=== PATIENT | male | born 1930 | race Two or more races ===

== ENCOUNTER → 2018-04-18 | Outpatient (CLI) | payer OTHER, MEDICAID ==
[~2018-04-18] MED LIST: ASPI81CH43; ASPI81CH43 PO; CARV20CA OR; CARV25TA55; METH500T6; METH500T6 PO
[2018-04-18 11:03] VITALS: BP_SYST 106; BP_SYST 113; BP_DIAS 52; BP_DIAS 59
[2018-04-18 12:03] VITALS: BP 106/52
== END | disposition home or self-care (01) ==
LOC: CHF HDHVI 09:46
PROVIDERS: ATTEND Internal Medicine
DX: I25.10 Atherosclerotic heart disease of native coronary artery without angina pectoris (principal); R94.31 Abnormal electrocardiogram [ECG] [EKG]
CPT/HCPCS: 93005; G0463

== ENCOUNTER → 2018-04-19 | Outpatient (CLI) | payer OTHER, MEDICAID ==
[2018-04-19 10:28] VITALS: BP_SYST 105; BP_SYST 111; BP_DIAS 58; BP_DIAS 76
== END | disposition home or self-care (01) ==
LOC: CHF HDHVI 09:56
PROVIDERS: ATTEND Internal Medicine
DX: I25.118 Atherosclerotic heart disease of native coronary artery with other forms of angina pectoris (principal); I25.5 Ischemic cardiomyopathy; I11.0 Hypertensive heart disease with heart failure; I50.23 Acute on chronic systolic (congestive) heart failure; Z98.61 Coronary angioplasty status
CPT/HCPCS: G0166

== ENCOUNTER → 2018-04-20 | Outpatient (CLI) | payer OTHER, MEDICAID ==
[2018-04-20 10:29] VITALS: BP_SYST 109; BP_SYST 113; BP_DIAS 54; BP_DIAS 59
== END | disposition home or self-care (01) ==
LOC: CHF HDHVI 09:58
PROVIDERS: ATTEND Internal Medicine Cardiovascular Disease
DX: I25.118 Atherosclerotic heart disease of native coronary artery with other forms of angina pectoris (principal); I25.5 Ischemic cardiomyopathy; I11.0 Hypertensive heart disease with heart failure; I50.23 Acute on chronic systolic (congestive) heart failure; E11.9 Type 2 diabetes mellitus without complications; Z98.61 Coronary angioplasty status
CPT/HCPCS: G0166

== ENCOUNTER → 2018-04-21 | Outpatient (CLI) | payer OTHER, MEDICAID ==
[2018-04-21 10:13] VITALS: BP_SYST 109; BP_SYST 113; BP_DIAS 50; BP_DIAS 57
== END | disposition home or self-care (01) ==
LOC: CHF HDHVI 09:58
PROVIDERS: ATTEND Internal Medicine Cardiovascular Disease
DX: I25.118 Atherosclerotic heart disease of native coronary artery with other forms of angina pectoris (principal); I25.5 Ischemic cardiomyopathy; E11.9 Type 2 diabetes mellitus without complications; I50.23 Acute on chronic systolic (congestive) heart failure; Z98.61 Coronary angioplasty status
CPT/HCPCS: G0166

== ENCOUNTER → 2018-04-22 | Outpatient (CLI) | payer OTHER, MEDICAID ==
[2018-04-22 10:12] VITALS: BP_SYST 116; BP_SYST 117; BP_DIAS 49; BP_DIAS 51
== END | disposition home or self-care (01) ==
LOC: CHF HDHVI 10:01
PROVIDERS: ATTEND Internal Medicine Cardiovascular Disease
DX: I25.118 Atherosclerotic heart disease of native coronary artery with other forms of angina pectoris (principal)
CPT/HCPCS: G0166

== ENCOUNTER → 2018-04-25 | Outpatient (CLI) | payer OTHER, MEDICAID ==
[2018-04-25 10:20] VITALS: BP_SYST 113; BP_DIAS 53; BP_DIAS 78
== END | disposition home or self-care (01) ==
LOC: CHF HDHVI 09:31
PROVIDERS: ATTEND Internal Medicine Cardiovascular Disease
DX: I25.118 Atherosclerotic heart disease of native coronary artery with other forms of angina pectoris (principal); I25.5 Ischemic cardiomyopathy; I50.23 Acute on chronic systolic (congestive) heart failure; E11.9 Type 2 diabetes mellitus without complications; Z98.61 Coronary angioplasty status
CPT/HCPCS: G0166

== ENCOUNTER → 2018-04-26 | Outpatient (CLI) | payer OTHER, MEDICAID ==
[2018-04-26 10:21] VITALS: BP_SYST 113; BP_SYST 116; BP_DIAS 59; BP_DIAS 61
== END | disposition home or self-care (01) ==
LOC: CHF HDHVI 09:47
PROVIDERS: ATTEND Internal Medicine Cardiovascular Disease
DX: I25.118 Atherosclerotic heart disease of native coronary artery with other forms of angina pectoris (principal); I25.5 Ischemic cardiomyopathy; I50.23 Acute on chronic systolic (congestive) heart failure; E11.9 Type 2 diabetes mellitus without complications; Z98.61 Coronary angioplasty status
CPT/HCPCS: G0166

== ENCOUNTER → 2018-04-27 | Outpatient (CLI) | payer OTHER, MEDICAID ==
[2018-04-27 10:23] VITALS: BP_SYST 113; BP_SYST 114; BP_DIAS 56; BP_DIAS 60
== END | disposition home or self-care (01) ==
LOC: CHF HDHVI 10:10
PROVIDERS: ATTEND Internal Medicine Cardiovascular Disease
DX: I25.118 Atherosclerotic heart disease of native coronary artery with other forms of angina pectoris (principal); I25.5 Ischemic cardiomyopathy; I50.23 Acute on chronic systolic (congestive) heart failure; E11.9 Type 2 diabetes mellitus without complications; Z98.61 Coronary angioplasty status
CPT/HCPCS: G0166

== ENCOUNTER → 2018-04-28 | Outpatient (CLI) | payer OTHER, MEDICAID ==
[2018-04-28 10:23] VITALS: BP_SYST 128; BP_DIAS 64; BP_DIAS 68
== END | disposition home or self-care (01) ==
LOC: CHF HDHVI 09:50
PROVIDERS: ATTEND Internal Medicine Cardiovascular Disease
DX: I25.118 Atherosclerotic heart disease of native coronary artery with other forms of angina pectoris (principal); I50.23 Acute on chronic systolic (congestive) heart failure; I25.5 Ischemic cardiomyopathy; E11.9 Type 2 diabetes mellitus without complications; Z98.61 Coronary angioplasty status
CPT/HCPCS: G0166

== ENCOUNTER → 2018-04-29 | Outpatient (CLI) | payer OTHER, MEDICAID ==
[2018-04-29 10:26] VITALS: BP_SYST 123; BP_SYST 125; BP_DIAS 61; BP_DIAS 63
== END | disposition home or self-care (01) ==
LOC: CHF HDHVI 09:52
PROVIDERS: ATTEND Internal Medicine Cardiovascular Disease
DX: I25.118 Atherosclerotic heart disease of native coronary artery with other forms of angina pectoris (principal); I11.0 Hypertensive heart disease with heart failure; I50.23 Acute on chronic systolic (congestive) heart failure; I25.5 Ischemic cardiomyopathy; E11.9 Type 2 diabetes mellitus without complications; Z98.61 Coronary angioplasty status
CPT/HCPCS: G0166

== ENCOUNTER → 2018-05-02 | Outpatient (CLI) | payer OTHER, MEDICAID ==
[2018-05-02 10:24] VITALS: BP_SYST 110; BP_SYST 125; BP_DIAS 55; BP_DIAS 57
== END | disposition home or self-care (01) ==
LOC: Rad HDHVI 10:19
PROVIDERS: ATTEND Internal Medicine
DX: I25.118 Atherosclerotic heart disease of native coronary artery with other forms of angina pectoris (principal); I25.5 Ischemic cardiomyopathy; I11.0 Hypertensive heart disease with heart failure; I50.23 Acute on chronic systolic (congestive) heart failure; E11.9 Type 2 diabetes mellitus without complications; Z98.61 Coronary angioplasty status
CPT/HCPCS: G0166

== ENCOUNTER → 2018-05-03 | Outpatient (CLI) | payer OTHER, MEDICAID ==
[2018-05-03 10:15] VITALS: BP_SYST 116; BP_SYST 119; BP_DIAS 61
== END | disposition home or self-care (01) ==
LOC: CHF HDHVI 10:07
PROVIDERS: ATTEND Internal Medicine Cardiovascular Disease
DX: I25.118 Atherosclerotic heart disease of native coronary artery with other forms of angina pectoris (principal); I25.5 Ischemic cardiomyopathy; E11.9 Type 2 diabetes mellitus without complications; I50.23 Acute on chronic systolic (congestive) heart failure; Z98.61 Coronary angioplasty status
CPT/HCPCS: G0166

== ENCOUNTER → 2018-05-05 | Outpatient (CLI) | payer OTHER, MEDICAID ==
[2018-05-05 10:13] VITALS: BP_SYST 114; BP_SYST 117; BP_DIAS 54; BP_DIAS 57
== END | disposition home or self-care (01) ==
LOC: CHF HDHVI 10:06
PROVIDERS: ATTEND Internal Medicine Cardiovascular Disease
DX: I25.118 Atherosclerotic heart disease of native coronary artery with other forms of angina pectoris (principal); I25.5 Ischemic cardiomyopathy; I50.23 Acute on chronic systolic (congestive) heart failure; E11.9 Type 2 diabetes mellitus without complications; Z98.61 Coronary angioplasty status
CPT/HCPCS: G0166

== ENCOUNTER → 2018-05-06 | Outpatient (CLI) | payer OTHER, MEDICAID ==
[2018-05-06 10:03] VITALS: BP_SYST 112; BP_SYST 132; BP_DIAS 57
== END | disposition home or self-care (01) ==
LOC: Rad HDHVI 09:48
PROVIDERS: ATTEND Internal Medicine Cardiovascular Disease
DX: I25.118 Atherosclerotic heart disease of native coronary artery with other forms of angina pectoris (principal); I25.5 Ischemic cardiomyopathy; I11.0 Hypertensive heart disease with heart failure; I50.23 Acute on chronic systolic (congestive) heart failure; E11.9 Type 2 diabetes mellitus without complications; Z98.61 Coronary angioplasty status
CPT/HCPCS: G0166

== ENCOUNTER → 2018-05-09 | Outpatient (CLI) | payer OTHER, MEDICAID ==
[2018-05-09 10:21] VITALS: BP_SYST 112; BP_SYST 119; BP_DIAS 55; BP_DIAS 56
== END | disposition home or self-care (01) ==
LOC: CHF HDHVI 10:14
PROVIDERS: ATTEND Internal Medicine Cardiovascular Disease
DX: I25.118 Atherosclerotic heart disease of native coronary artery with other forms of angina pectoris (principal); I25.5 Ischemic cardiomyopathy; I50.23 Acute on chronic systolic (congestive) heart failure; E11.9 Type 2 diabetes mellitus without complications; Z98.61 Coronary angioplasty status
CPT/HCPCS: G0166

== ENCOUNTER → 2018-05-10 | Outpatient (CLI) | payer OTHER, MEDICAID ==
[2018-05-10 10:13] VITALS: BP_SYST 116; BP_DIAS 49; BP_DIAS 55
== END | disposition home or self-care (01) ==
LOC: CHF HDHVI 09:53
PROVIDERS: ATTEND Internal Medicine Cardiovascular Disease
DX: I25.118 Atherosclerotic heart disease of native coronary artery with other forms of angina pectoris (principal); I25.5 Ischemic cardiomyopathy; I11.0 Hypertensive heart disease with heart failure; I50.23 Acute on chronic systolic (congestive) heart failure; E11.9 Type 2 diabetes mellitus without complications; Z98.61 Coronary angioplasty status
CPT/HCPCS: G0166

== ENCOUNTER → 2018-05-20 | Outpatient (CLI) | payer OTHER, MEDICAID ==
[2018-05-20 10:11] VITALS: BP_SYST 114; BP_SYST 116; BP_DIAS 62; BP_DIAS 68
== END | disposition home or self-care (01) ==
LOC: CHF HDHVI 10:13
PROVIDERS: ATTEND Internal Medicine Cardiovascular Disease
DX: I25.118 Atherosclerotic heart disease of native coronary artery with other forms of angina pectoris (principal); I25.5 Ischemic cardiomyopathy; I11.0 Hypertensive heart disease with heart failure; I50.23 Acute on chronic systolic (congestive) heart failure; E11.9 Type 2 diabetes mellitus without complications; Z98.61 Coronary angioplasty status
CPT/HCPCS: G0166

== ENCOUNTER → 2018-06-06 | Outpatient (CLI) | payer OTHER, MEDICAID ==
[2018-06-06 11:10] VITALS: BP_SYST 118; BP_SYST 120; BP_DIAS 58; BP_DIAS 60
== END | disposition home or self-care (01) ==
LOC: CHF HDHVI 09:41
PROVIDERS: ATTEND Internal Medicine Cardiovascular Disease
DX: I25.118 Atherosclerotic heart disease of native coronary artery with other forms of angina pectoris (principal); I25.5 Ischemic cardiomyopathy; I11.0 Hypertensive heart disease with heart failure; I50.23 Acute on chronic systolic (congestive) heart failure; E11.9 Type 2 diabetes mellitus without complications; Z98.61 Coronary angioplasty status
CPT/HCPCS: G0166

== ENCOUNTER → 2018-06-07 | Outpatient (CLI) | payer OTHER, MEDICAID ==
[2018-06-07 10:14] VITALS: BP_SYST 116; BP_SYST 122; BP_DIAS 59
== END | disposition home or self-care (01) ==
LOC: CHF HDHVI 09:48
PROVIDERS: ATTEND Internal Medicine Cardiovascular Disease
DX: I25.118 Atherosclerotic heart disease of native coronary artery with other forms of angina pectoris (principal); I25.5 Ischemic cardiomyopathy; I11.0 Hypertensive heart disease with heart failure; I50.23 Acute on chronic systolic (congestive) heart failure; E11.9 Type 2 diabetes mellitus without complications; Z98.61 Coronary angioplasty status
CPT/HCPCS: G0166

== ENCOUNTER → 2018-06-08 | Outpatient (CLI) | payer OTHER, MEDICAID ==
[2018-06-08 10:09] VITALS: BP_SYST 117; BP_SYST 135; BP_DIAS 55; BP_DIAS 80
== END | disposition home or self-care (01) ==
LOC: CHF HDHVI 10:02
PROVIDERS: ATTEND Internal Medicine Cardiovascular Disease
DX: I25.118 Atherosclerotic heart disease of native coronary artery with other forms of angina pectoris (principal); I25.5 Ischemic cardiomyopathy; I11.0 Hypertensive heart disease with heart failure; I50.23 Acute on chronic systolic (congestive) heart failure; E11.9 Type 2 diabetes mellitus without complications; Z98.61 Coronary angioplasty status
CPT/HCPCS: G0166

== ENCOUNTER → 2018-06-10 | Outpatient (CLI) | payer OTHER, MEDICAID ==
[2018-06-10 10:21] VITALS: BP_SYST 116; BP_SYST 128; BP_DIAS 59; BP_DIAS 63
== END | disposition home or self-care (01) ==
LOC: CHF HDHVI 10:12
PROVIDERS: ATTEND Internal Medicine Cardiovascular Disease
DX: I25.118 Atherosclerotic heart disease of native coronary artery with other forms of angina pectoris (principal); I50.23 Acute on chronic systolic (congestive) heart failure; I25.5 Ischemic cardiomyopathy; E11.9 Type 2 diabetes mellitus without complications; Z98.61 Coronary angioplasty status
CPT/HCPCS: G0166

== ENCOUNTER → 2018-06-14 | Outpatient (CLI) | payer OTHER, MEDICAID ==
[2018-06-14 10:07] VITALS: BP_SYST 116; BP_SYST 130; BP_DIAS 55; BP_DIAS 60
== END | disposition home or self-care (01) ==
LOC: CHF HDHVI 10:11
PROVIDERS: ATTEND Internal Medicine Cardiovascular Disease
DX: I25.118 Atherosclerotic heart disease of native coronary artery with other forms of angina pectoris (principal); I25.5 Ischemic cardiomyopathy; I11.0 Hypertensive heart disease with heart failure; I50.23 Acute on chronic systolic (congestive) heart failure; E11.9 Type 2 diabetes mellitus without complications; Z98.61 Coronary angioplasty status
CPT/HCPCS: G0166

== ENCOUNTER → 2018-06-15 | Outpatient (CLI) | payer OTHER, MEDICAID ==
[2018-06-15 10:08] VITALS: BP_SYST 118; BP_SYST 124; BP_DIAS 60; BP_DIAS 61
== END | disposition home or self-care (01) ==
LOC: CHF HDHVI 10:03
PROVIDERS: ATTEND Internal Medicine Cardiovascular Disease
DX: I25.118 Atherosclerotic heart disease of native coronary artery with other forms of angina pectoris (principal); I25.5 Ischemic cardiomyopathy; I11.0 Hypertensive heart disease with heart failure; I50.23 Acute on chronic systolic (congestive) heart failure; E11.9 Type 2 diabetes mellitus without complications; Z98.61 Coronary angioplasty status
CPT/HCPCS: G0166

== ENCOUNTER → 2018-06-20 | Outpatient (CLI) | payer OTHER, MEDICAID ==
[2018-06-20 10:39] VITALS: BP_SYST 112; BP_SYST 118; BP_DIAS 60; BP_DIAS 62
== END | disposition home or self-care (01) ==
LOC: CHF HDHVI 10:34
PROVIDERS: ATTEND Internal Medicine Cardiovascular Disease
DX: I25.118 Atherosclerotic heart disease of native coronary artery with other forms of angina pectoris (principal); I25.5 Ischemic cardiomyopathy; E11.9 Type 2 diabetes mellitus without complications; I11.0 Hypertensive heart disease with heart failure; I50.23 Acute on chronic systolic (congestive) heart failure; Z98.61 Coronary angioplasty status
CPT/HCPCS: G0166

== ENCOUNTER → 2018-06-21 | Outpatient (CLI) | payer OTHER, MEDICAID ==
[2018-06-21 10:20] VITALS: BP_SYST 119; BP_SYST 129; BP_DIAS 61; BP_DIAS 64
== END | disposition home or self-care (01) ==
LOC: CHF HDHVI 09:49
PROVIDERS: ATTEND Internal Medicine Cardiovascular Disease
DX: I25.118 Atherosclerotic heart disease of native coronary artery with other forms of angina pectoris (principal); I25.5 Ischemic cardiomyopathy; I50.23 Acute on chronic systolic (congestive) heart failure; E11.9 Type 2 diabetes mellitus without complications; Z98.61 Coronary angioplasty status
CPT/HCPCS: G0166

== ENCOUNTER → 2018-06-22 | Outpatient (CLI) | payer OTHER, MEDICAID ==
[2018-06-22 10:21] VITALS: BP_SYST 118; BP_SYST 134; BP_DIAS 62; BP_DIAS 72
== END | disposition home or self-care (01) ==
LOC: CHF HDHVI 09:49
PROVIDERS: ATTEND Internal Medicine Cardiovascular Disease
DX: I25.118 Atherosclerotic heart disease of native coronary artery with other forms of angina pectoris (principal); I25.5 Ischemic cardiomyopathy; I11.0 Hypertensive heart disease with heart failure; I50.23 Acute on chronic systolic (congestive) heart failure; E11.9 Type 2 diabetes mellitus without complications; Z98.61 Coronary angioplasty status
CPT/HCPCS: G0166

== ENCOUNTER → 2018-07-18 | Outpatient (CLI) | payer OTHER, MEDICAID ==
[2018-07-18 09:12] VITALS: BP_SYST 118; BP_SYST 121; BP_DIAS 67; BP_DIAS 69
--- NOTE | 2018-07-18 09:12 | NUR ---
EECP Tx# 27 First BP check on his Left arm is at 121/69 with a heart rate of 82bpm. Patient denies any symptoms or discomfort at this time. 1st pleth at 1 min into Tx patient EECP pressure will increase up to 280 if tolerable. 2nd pleth at 32 min into Tx patient is tolerating Tx pressure at 280 well at this time.Monitor shows excellent pleth valves with a heart rate of 72bpm.At this time patient is tolerating Tx pressure at 280 but requested upper upper thigh to be turn off during his Tx patient can't tolerate upper thigh.We will continue to monitor patient through his Tx if any changes occur. 3rd and final pleth at 50 min into Tx patient is doing well at this time. Patient is tolerating Tx pressure at 280 with upper thigh turn off.Monitor shows excellent pleth valves with a heart rate of 70bpm.Patient has 10 min left till his Tx is completed for the day. Last BP and HR check on his Left arm is at 118/67 with a heart rate of 72bpm. Patient denies any symptoms or discomfort at this time.
== END | disposition home or self-care (01) ==
LOC: CHF HDHVI 09:12
PROVIDERS: ATTEND Internal Medicine Cardiovascular Disease
DX: I25.118 Atherosclerotic heart disease of native coronary artery with other forms of angina pectoris (principal); I25.5 Ischemic cardiomyopathy; I50.23 Acute on chronic systolic (congestive) heart failure; E11.9 Type 2 diabetes mellitus without complications; Z98.61 Coronary angioplasty status
CPT/HCPCS: G0166

== ENCOUNTER → 2018-07-19 | Outpatient (CLI) | payer OTHER, MEDICAID ==
[2018-07-19 09:14] VITALS: BP_SYST 119; BP_SYST 137; BP_DIAS 60; BP_DIAS 63
--- NOTE | 2018-07-19 09:14 | NUR ---
EECP Tx# 28 First BP check on his Left arm is at 137/60 with a heart rate of 81bpm. Patient denies any symptoms or discomfort at this time. Medications have been taken this AM. 1st pleth at 1 min into Tx patient EECP pressure will increase up to 280 if tolerable with upper thigh turn off.Per patient he can't tolerate upper cuff during his Tx. 2nd pleth at 32 min into Tx patient is tolerating Tx pressure at 280 well at this time.Monitor shows excellent pleth valves with a heart rate of 74bpm.At this time patient is tolerating Tx pressure at 280 with upper Thigh turn off.We will continue to monitor patient through his Tx if any changes occur. 3rd and final pleth at 57 min into Tx patient is doing well at this time. Patient is tolerating Tx pressure at 280 with upper thigh turn off.Monitor shows excellent pleth valves with a heart rate of 73bpm.Patient has 3 min left till his Tx is completed for the day. Last BP and HR check on his Left arm is at 119/63 with a heart rate of 74bpm. Patient denies any symptoms or discomfort at this time.
== END | disposition home or self-care (01) ==
LOC: CHF HDHVI 09:14
PROVIDERS: ATTEND Internal Medicine Cardiovascular Disease
DX: I25.118 Atherosclerotic heart disease of native coronary artery with other forms of angina pectoris (principal); I25.5 Ischemic cardiomyopathy; I50.23 Acute on chronic systolic (congestive) heart failure; E11.9 Type 2 diabetes mellitus without complications; Z98.61 Coronary angioplasty status
CPT/HCPCS: G0166

== ENCOUNTER → 2018-07-20 | Outpatient (CLI) | payer OTHER, MEDICAID ==
[2018-07-20 09:14] VITALS: BP_SYST 119; BP_SYST 124; BP_DIAS 61; BP_DIAS 68
--- NOTE | 2018-07-20 09:14 | NUR ---
EECP Tx # 29 First BP check on his Left arm is at 124/68 with a heart rate of 72bpm. Patient denies any symptoms or discomfort at this time. Medications have been taken this AM before coming in to his Tx. 1st pleth at 1 min into Tx patient EECP pressure will slowly increase up to 280 if tolerable.Patient request upper thigh to be turn off during his Tx .Patient can't tolerate Upper thigh to be on during his Tx. 2nd pleth at 40 min into Tx patient is tolerating Tx pressure at 280 well patient denies any symptoms or discomfort at this moment.Monitor shows excellent pleth valves with a heart rate of 68bpm. 3rd and final pleth at 53 min into Tx patient is doing well with his Tx. Patient is resting at this time.Patient denies any chest pain,SOB,Fatigue at this time.Monitor shows excellent pleth valves with a heart rate of 66bpm. Patient has 7 min left till his Tx is completed for the day. Last BP check on his Left arm is at 119/61 with a heart rate of 71bpm. Patient denies any symptoms or discomfort at this time. Patient will come in tomorrow for Tx # 30.
== END | disposition home or self-care (01) ==
LOC: CHF HDHVI 09:14
PROVIDERS: ATTEND Internal Medicine Cardiovascular Disease
CPT/HCPCS: G0166

== ENCOUNTER → 2018-07-21 | Outpatient (CLI) | payer OTHER, MEDICAID ==
[2018-07-21 09:07] VITALS: BP_SYST 126; BP_SYST 145; BP_DIAS 67; BP_DIAS 72
--- NOTE | 2018-07-21 09:07 | NUR ---
EECP Tx # 30 First BP check on his Left arm is at 145/67 with a heart rate of 85bpm. Patient denies any symptoms or discomfort at this time. Medications have been taken this AM before coming in to his Tx. 1st pleth at 1 min into Tx patient EECP pressure will slowly increase up to 280 if tolerable.Patient request upper thigh to be turn off during his Tx .Patient can't tolerate Upper thigh to be on during his Tx. 2nd pleth at 44 min into Tx patient is tolerating Tx pressure at 280 well patient denies any symptoms or discomfort at this time.Monitor shows excellent pleth valves with a heart rate of 75bpm. 3rd and final pleth at 58 min into Tx patient is doing well with his Tx .Patient denies any chest pain,SOB,Fatigue at this time.Monitor shows excellent pleth valves with a heart rate of 70bpm.Patient has 2 min left till his Tx is completed for the day. Last BP check on his Left arm is at 126/72 with a heart rate of 70bpm. Patient denies any symptoms or discomfort at this time. Patient will come in tomorrow for Tx # 31.
== END | disposition home or self-care (01) ==
LOC: CHF HDHVI 08:59
PROVIDERS: ATTEND Internal Medicine Cardiovascular Disease
DX: I25.118 Atherosclerotic heart disease of native coronary artery with other forms of angina pectoris (principal); I25.5 Ischemic cardiomyopathy; I50.23 Acute on chronic systolic (congestive) heart failure; E11.9 Type 2 diabetes mellitus without complications; Z98.61 Coronary angioplasty status
CPT/HCPCS: G0166

== ENCOUNTER → 2018-07-25 | Outpatient (CLI) | payer OTHER, MEDICAID ==
[2018-07-25 09:13] VITALS: BP_SYST 112; BP_SYST 121; BP_DIAS 66; BP_DIAS 68
--- NOTE | 2018-07-25 09:13 | NUR ---
EECP Tx# 31 First BP check on his Left arm is at 121/66 with a heart rate of 75bpm. Patient denies any symptoms or discomfort at this time. Medications have been taken before coming in to his Tx. 1st pleth at 6 min into Tx patient EECP pressure will increase if tolerable. 2nd pleth at 32 min into Tx patient EECP pressure is at 280 patient is tolerating Tx pressure at this time.Monitor shows excellent pleth valves with a heart rate of 67bpm. 3rd and final pleth at 50 min into Tx Patient is doing well with Tx pressure at this time.Monitor shows excellent pleth valves with a heart rate of 64bpm.Patient has 10 min left till his Tx is completed for the day. Last BP check on his Left arm is at 112/68 with a heart rate of 64bpm. Patient denies any symptoms or discomfort at this time.
== END | disposition home or self-care (01) ==
LOC: CHF HDHVI 09:06
PROVIDERS: ATTEND Internal Medicine Cardiovascular Disease
DX: I25.118 Atherosclerotic heart disease of native coronary artery with other forms of angina pectoris (principal); I25.5 Ischemic cardiomyopathy; I50.23 Acute on chronic systolic (congestive) heart failure; E11.9 Type 2 diabetes mellitus without complications; Z98.61 Coronary angioplasty status
CPT/HCPCS: G0166

== ENCOUNTER → 2018-07-26 | Outpatient (CLI) | payer OTHER, MEDICAID ==
[2018-07-26 10:28] VITALS: BP 120/93
[2018-07-26 10:56] VITALS: BP 107/49
== END | disposition home or self-care (01) ==
LOC: CHF HDHVI 09:16
PROVIDERS: ATTEND Internal Medicine Cardiovascular Disease
DX: I25.118 Atherosclerotic heart disease of native coronary artery with other forms of angina pectoris (principal); I25.5 Ischemic cardiomyopathy; I50.23 Acute on chronic systolic (congestive) heart failure
CPT/HCPCS: G0166

== ENCOUNTER → 2018-07-27 | Outpatient (CLI) | payer OTHER, MEDICAID ==
[2018-07-27 09:22] VITALS: BP 94/53
[2018-07-27 10:22] VITALS: BP 96/49
--- NOTE | 2018-07-27 10:22 | NUR ---
Patient completed treatment #33. Patient denied any symptoms during treatment. Upper cuff turned off for treatment, patient will return tomorrow for next treatment.
== END | disposition home or self-care (01) ==
LOC: CHF HDHVI 09:06
PROVIDERS: ATTEND Internal Medicine Cardiovascular Disease
DX: I25.118 Atherosclerotic heart disease of native coronary artery with other forms of angina pectoris (principal); I25.5 Ischemic cardiomyopathy; I50.23 Acute on chronic systolic (congestive) heart failure; E11.9 Type 2 diabetes mellitus without complications; Z98.61 Coronary angioplasty status
CPT/HCPCS: G0166

== ENCOUNTER → 2018-08-02 | Outpatient (CLI) | payer OTHER, MEDICAID ==
[2018-08-02 09:00] VITALS: BP_SYST 112; BP_SYST 139; BP_DIAS 63; BP_DIAS 64
--- NOTE | 2018-08-02 09:00 | NUR ---
EECP Tx# 34 First BP check on his Left arm is at 139/63 with a heart rate of 88bpm. Patient denies any chest pain,SOB,Fatigue at this time. Medications have been taken before coming in to his Tx. 1st pleth at 1 min into Tx EECP pressure will increase if tolerable. 2nd pleth at 35 min into Tx patient is tolerating Tx pressure at 280 well at this time.Monitor shows excellent pleth valves with a heart rate of 73bpm. 3rd and final pleth at 52 min into Tx patient is doing well at this time.Monitor shows excellent pleth valves with a heart rate of 76bpm.Patient has 8 min left till his Tx is completed for the day. Last BP check on his Left arm is at 112/64 with a heart rate 72bpm. Patient denies any symptoms or discomfort at this time.
== END | disposition home or self-care (01) ==
LOC: CHF HDHVI 09:09
PROVIDERS: ATTEND Internal Medicine Cardiovascular Disease
DX: I25.118 Atherosclerotic heart disease of native coronary artery with other forms of angina pectoris (principal); I25.5 Ischemic cardiomyopathy; I50.23 Acute on chronic systolic (congestive) heart failure; E11.9 Type 2 diabetes mellitus without complications; Z98.61 Coronary angioplasty status
CPT/HCPCS: G0166

== ENCOUNTER → 2018-08-03 | Outpatient (CLI) | payer OTHER, MEDICAID ==
[2018-08-03 09:00] VITALS: BP_SYST 112; BP_SYST 115; BP_DIAS 57; BP_DIAS 90
--- NOTE | 2018-08-03 09:00 | NUR ---
EECP Tx# 35 First BP CHECK on left arm is at 115/90 with a heart rate of 90bpm. Patient denies any symptoms or discomfort at this time. Medication have been taken this AM. This will be patient's Last day of EECP. Patient stated he has no changes during his Tx. 1st pleth at 1 min into Tx patient EECP pressure will increase if tolerable. 2nd pleth at 42 min into Tx patient is tolerating Tx pressure at 280 well at this time.Patient denies any chest pain,SOB,Fatigue at this time.Monitor shows excellent pleth valves with a heart rate of 76bpm. 3rd and final pleth at 59 min into tx patient is doing well at this resting at this moment.Monitor shows excellent pleth valves with a heart rate of 74bpm.Patient has 1 min till he is completed with his 35 days of Tx. Patient has already follow up with . Last BP check on Left arm is at 112/57 with a heart rate of 77bpm. Patient denies any symptoms or discomfort at this time.
== END | disposition home or self-care (01) ==
LOC: CHF HDHVI 09:21
PROVIDERS: ATTEND Internal Medicine Cardiovascular Disease
DX: I25.118 Atherosclerotic heart disease of native coronary artery with other forms of angina pectoris (principal); I25.5 Ischemic cardiomyopathy; I50.23 Acute on chronic systolic (congestive) heart failure; E11.9 Type 2 diabetes mellitus without complications; Z98.61 Coronary angioplasty status
CPT/HCPCS: G0166

== ENCOUNTER → 2018-09-30 | Outpatient (CLI) | payer OTHER, MEDICAID | END | disposition home or self-care (01) | LOC: Rad HDHVI 09:06 | PROVIDERS: ATTEND Internal Medicine | DX: I08.3 Combined rheumatic disorders of mitral, aortic and tricuspid valves (principal); I11.0 Hypertensive heart disease with heart failure; I50.9 Heart failure, unspecified; J42 Unspecified chronic bronchitis | CPT/HCPCS: 93306 ==

== ENCOUNTER → 2019-09-11 | Outpatient (CLI) | payer OTHER, MEDICAID ==
[2019-09-11 11:23] VITALS: BP 115/61
--- NOTE | 2019-09-11 11:23 | NUR ---
Signature Attestation Statement: I MARYLU PRAJAPATI performed this procedure EECP on this patient. Addendum: 09/11/19 at 1123 by MARYLU PRAJAPATI HDHI2 Amended: Links added.
--- NOTE | 2019-09-11 11:24 | NUR ---
Signature Attestation Statement: I MARYLU PRAJAPATI performed this procedure EECP on this patient. Addendum: 09/11/19 at 1124 by MARYLU PRAJAPATI HDHI2 Amended: Links added.
[2019-09-11 11:41] VITALS: BP 116/66
--- NOTE | 2019-09-11 11:41 | NUR ---
Signature Attestation Statement: I MARYLU PRAJAPATI performed this procedure EECP on this patient. Addendum: 09/11/19 at 1141 by MARYLU PRAJAPATI HDHI2 Amended: Links added.
--- NOTE | 2019-09-11 11:51 | NUR ---
Signature Attestation Statement: I MARYLU PRAJAPATI performed this procedure EECP on this patient. Addendum: 09/11/19 at 1151 by MARYLU PRAJAPATI HDHI2 Amended: Links added.
== END | disposition home or self-care (01) ==
LOC: CHF HDHVI 10:11
PROVIDERS: ATTEND Internal Medicine
DX: I25.708 Atherosclerosis of coronary artery bypass graft(s), unspecified, with other forms of angina pectoris (principal); I50.43 Acute on chronic combined systolic (congestive) and diastolic (congestive) heart failure; I25.5 Ischemic cardiomyopathy; R06.02 Shortness of breath; R07.9 Chest pain, unspecified; Z95.810 Presence of automatic (implantable) cardiac defibrillator
CPT/HCPCS: G0166

== ENCOUNTER → 2019-09-12 | Outpatient (CLI) | payer OTHER, MEDICAID ==
[2019-09-12 11:12] VITALS: BP 113/53
--- NOTE | 2019-09-12 11:12 | NUR ---
Signature Attestation Statement: I MARYLU PRAJAPATI performed this procedure EECP on this patient. Addendum: 09/12/19 at 1112 by MARYLU PRAJAPATI HDHI2 Amended: Links added.
--- NOTE | 2019-09-12 11:13 | NUR ---
Signature Attestation Statement: I MARYLU PRAJAPATI performed this procedure EECP on this patient. Addendum: 09/12/19 at 1113 by MARYLU PRAJAPATI HDHI2 Amended: Links added.
[2019-09-12 12:00] VITALS: BP 95/48
--- NOTE | 2019-09-12 12:00 | NUR ---
Signature Attestation Statement: I MARYLU PRAJAPATI performed this procedure EECP on this patient. Addendum: 09/12/19 at 1200 by MARYLU PRAJAPATI HDHI2 Amended: Links added.
--- NOTE | 2019-09-12 12:14 | NUR ---
Signature Attestation Statement: I MARYLU PRAJAPATI performed this procedure EECP on this patient. Addendum: 09/12/19 at 1214 by MARYLU PRAJAPATI HDHI2 Amended: Links added.
== END | disposition home or self-care (01) ==
LOC: CHF HDHVI 10:22
PROVIDERS: ATTEND Internal Medicine
DX: I25.708 Atherosclerosis of coronary artery bypass graft(s), unspecified, with other forms of angina pectoris (principal); I50.43 Acute on chronic combined systolic (congestive) and diastolic (congestive) heart failure; I25.5 Ischemic cardiomyopathy; I42.9 Cardiomyopathy, unspecified; R07.9 Chest pain, unspecified; Z95.810 Presence of automatic (implantable) cardiac defibrillator
CPT/HCPCS: G0166